=== PATIENT | male | born 1980 | race Asian ===

== ENCOUNTER 2017-08-02 11:56 | Outpatient (CLI) | payer OTHER | END 2017-08-02 13:00 | disposition home or self-care (01) | LOC: RAD 11:56 | DX: M25.512 Pain in left shoulder (principal); M54.5 Low back pain ==

== ENCOUNTER 2018-05-22 17:36 | Emergency (ER) | payer OTHER ==
[~2018-05-22] VITALS: Ht 172.7 cm; Wt 102.1 kg
[2018-05-22] MEDS ORDERED: TRAM50TA PO (17:43)
[2018-05-22 18:24] VITALS: BP 118/78; TEMP 98
== END 2018-05-22 18:24 | disposition home or self-care (01) ==
LOC: ED 17:36
DX: H65.191 Other acute nonsuppurative otitis media, right ear (principal)
CPT/HCPCS: 96372; 99283; J1885

== ENCOUNTER 2021-01-07 11:32 | Outpatient (CLI) | payer OTHER ==
[~2021-01-07 11:32] MED LIST: TRAM50TA PO
== END 2021-01-07 19:36 | disposition home or self-care (01) ==
LOC: US 11:32
PROVIDERS: ATTEND Nurse Practitioner Family
DX: R10.13 Epigastric pain (principal); R10.9 Unspecified abdominal pain; R11.0 Nausea

== ENCOUNTER 2022-11-17 13:30 | Outpatient (CLI) | payer OTHER | END 2022-11-17 23:39 | disposition home or self-care (01) | LOC: MAMMO 13:30 | PROVIDERS: ATTEND Nurse Practitioner Family | DX: N63.10 Unspecified lump in the right breast, unspecified quadrant (principal) ==

== ENCOUNTER 2023-07-17 09:10 | Outpatient (CLI) | payer OTHER | END 2023-07-17 19:03 | disposition home or self-care (01) | LOC: RAD 09:10 | PROVIDERS: ATTEND Internal Medicine | DX: Z02.71 Encounter for disability determination (principal) ==